=== PATIENT | female | born 1945 | race Caucasian/White ===

== ENCOUNTER 2016-11-27 12:47 | Emergency (ER) | payer MEDICARE, BC ==
[~2016-11-27] VITALS: Ht 165.1 cm; Wt 69.3 kg
[2016-11-27 13:10] VITALS: BP 140/78; PULSE 86; RESP 16; TEMP 98.5; O2SAT 95
[2016-11-27] MEDS ORDERED: LIPI10TA PO (14:41)
[2016-11-27] MEDS ORDERED: SODIUM CHLOR 0.9% 1000 ML INJ 1,000 ML IV SCH (15:15)
[2016-11-27 15:24] VITALS: BP 125/63; PULSE 80; RESP 18; O2SAT 97
[2016-11-27 15:27] LABS: AUTOMATED NEUTROPHIL # 5.4 TH/MM3 (1.8-7.7); BASOPHIL % 0.5 % (0.0-2.0); EOSINOPHIL # 0.4 TH/MM3 (0-0.4); EOSINOPHIL % 5.2 % (0.0-4.0); HEMATOCRIT 39.8 % (35.0-46.0); HEMO FLAGS DIFF FINAL; LYMPH % 18.5 % (9.0-44.0); LYMPHOCYTE # 1.4 TH/MM3 (1.0-4.8); MEAN CELL VOLUME 87.7 FL (80.0-100.0); MEAN CORPUSCULAR HEMOGLOBIN 29.4 PG (27.0-34.0); MEAN CORPUSCULAR HGB CONC 33.5 % (32.0-36.0); MONO % 7.5 % (0.0-8.0); NEUT % 68.3 % (16.0-70.0); PLATELET COUNT 254 TH/MM3 (150-450); RED BLOOD COUNT 4.53 MIL/MM3 (4.00-5.30); RED CELL DISTRIBUTION WIDTH 12.1 % (11.6-17.2); WHITE BLOOD COUNT 7.8 TH/MM3 (4.0-11.0)
[2016-11-27 15:34] LABS: CHLORIDE 108 MEQ/L (98-107); POTASSIUM 4.1 MEQ/L (3.5-5.1); SODIUM (NA) 143 MEQ/L (136-145)
[2016-11-27 15:39] LABS: ANION GAP 7 MEQ/L (5-15); BICARBONATE 27.7 MEQ/L (21.0-32.0); BLOOD UREA NITROGEN 14 MG/DL (7-18)
[2016-11-27 15:42] LABS: ALT (GPT) 17 U/L (10-53); AST (GOT) 15 U/L (15-37); GLOMERULAR FILTRATION RATE 64 ML/MIN (>89)
[2016-11-27 15:43] LABS: TOTAL BILIRUBIN ADULT 0.5 MG/DL (0.2-1.0)
[2016-11-27 15:45] LABS: ALKALINE PHOSPHATASE 85 U/L (45-117)
[2016-11-27] MEDS ORDERED: IOHEXOL 350 MG/ML 10 ML VIAL (for RAD DIAG) IV ONE (16:06)
--- NOTE | 2016-11-27 16:19 | RADHPO ---
EXAM DATE/TIME: 11/27/2016 15:50 [place] COMPARISON: No previous studies available for comparison. INDICATIONS : Right supraclavicular palpable mass. IV CONTRAST: 80 cc Omnipaque 350 (iohexol) IV RADIATION DOSE: 9.00 CTDIvol (mGy) MEDICAL HISTORY : Cardiovascular disease. SURGICAL HISTORY : Right neck lymphectomy. ENCOUNTER: Initial ACUITY: 3 weeks PAIN SCALE: 2/10 LOCATION: Left upper chest TECHNIQUE: Volumetric scanning of the chest was performed. Using automated exposure control and adjustment of t he mA and/or kV according to patient size, radiation dose was kept as low as reasonably achievable to obtain optimal diagnostic quality images. FINDINGS: LUNGS: There is no consolidation or pneumothorax. No concerning pulmonary nodule is visualized. 5 mm nodule left lower lobe in the costophrenic angle. PLEURA: There is no pleural thickening or pleural effusion. MEDIASTINUM: The heart and great vessels demonstrate no acute abnormality. There is no mediastinal or hilar lymph adenopathy. AXILLAE: Within normal limits. No lymphadenopathy. SKELETAL: Within normal limits for patient age. MISCELLANEOUS: The visualized upper abdominal organs demonstrate no acute abnormality. Marker placed in the right ne ck. This overlies the right sternocleidomastoid musculature and right internal jugular vein which is larger on the right. There is mixing of unopacified blood and contrast within the right jugular vein. CONCLUSION: 1. Marker on the right neck and overlies the right sternocleidomastoid musculature and right internal jugular vein. No soft tissue mass. May consider an ultrasound to insure no thrombus in the right int ernal jugular vein. 2. No infiltrate or mass. 3. 5 mm nodule left lower lobe in the costophrenic angle, likely benign. Followup CT chest in 6 month s recommended for stability Juan Fabian MD on November 27, 2016 at 16:11 Board Certified Radiologist. This report was verified electronically.
--- NOTE | 2016-11-27 16:56 | PD ---
HPI Chief Complaint: Lump, Cyst, Hernia Time Seen by Provider: 14:47 Travel History International Travel<30 days: No Contact w/Intl Traveler<30days: No Traveled to known affect area: No History of Present Illness HPI Is a 71-year-old woman who presents to the emergency department concerned that she feels a lump over her right clavicle. She's had a right sided lymph node lump on her neck removed a basketball scout to be nothing of consequence. She states she noticed this about several weeks ago and then was overcome with worry today. She tried to call Dr. Mcarthur's office, whom she has never met, to arrange for an evaluation. She was referred here to the impression that if we did images here they would be only review them remotely. No fevers chills night sweats weight loss or any other constitutional symptoms. She's been feeling well. No tenderness to the area. History Past Medical History Narrative Medical Hyperlipidemia Tetanus Vaccination: Unknown Influenza Vaccination: Yes Menopausal: Yes Social History Alcohol Use: Yes (Socially) Tobacco Use: No Allergies-Medications (Allergen,Severity, Reaction): Coded Allergies: Latex (Verified Allergy, Severe, Difficulty breathing , 11/27/16) Reported Meds & Prescriptions Reported Meds & Active Scripts Active Reported Lipitor (Atorvastatin Calcium) 10 Mg Tab 10 Mg PO HS Review of Systems Except as stated in HPI: all other systems reviewed are Neg Physical Exam Narrative GENERAL: Well-appearing 71-year-old woman, no acute distress. SKIN: Warm and dry. HEAD: Atraumatic. Normocephalic. EYES: Pupils equal and round. No scleral icterus. No injection or drainage. ENT: No nasal bleeding or discharge. Mucous membranes pink and moist. NECK: Trachea midline. No JVD. I don't really feel any abnormal lumps or bumps to palpation. There may be just a little bit of fullness over the proximal right clavicle. No palpable lymph nodes. Lymphatic system: No abnormal anterior cervical adenopathy, axillary adenopathy , there is some shotty bilateral inguinal adenopathy. CARDIOVASCULAR: Regular rate and rhythm. No murmur appreciated. RESPIRATORY: No accessory muscle use. Clear to auscultation. Breath sounds equal bilaterally. GASTROINTESTINAL: Abdomen soft, non-tender, nondistended. Hepatic and splenic margins not palpable. MUSCULOSKELETAL: No obvious deformities. No clubbing. No cyanosis. No edema. NEUROLOGICAL: Awake and alert. No obvious cranial nerve deficits. Motor grossly within normal limits. Normal speech. PSYCHIATRIC: Appropriate mood and affect; insight and judgment normal. Data Data Last Documented VS Vital Signs Date Time Temp Pulse Resp B/P Pulse Ox O2 Delivery O2 Flow Rate FiO2 11/27/16 15:24 80 18 125/63 97 11/27/16 13:10 98.5 Orders Complete Blood Count With Diff (11/27/16 15:06) Comprehensive Metabolic Panel (11/27/16 15:06) Ct Thorax/ Chest W Iv Contrast (11/27/16 ) Iv Access Insert/Monitor (11/27/16 15:06) Sodium Chlor 0.9% 1000 Ml Inj (Ns 1000 M (11/27/16 15:15) Iohexol 350 Inj (Omnipaque 350 Inj) (11/27/16 16:06) Radiology Film Requests (11/27/16 ) Ed Poc Ultrasound (11/27/16 ) Labs Laboratory Tests Test 11/27/16 15:15 White Blood Count 7.8 TH/MM3 Red Blood Count 4.53 MIL/MM3 Hemoglobin 13.3 GM/DL Hematocrit 39.8 % Mean Corpuscular Volume 87.7 FL Mean Corpuscular Hemoglobin 29.4 PG Mean Corpuscular Hemoglobin 33.5 % Concent Red Cell Distribution Width 12.1 % Platelet Count 254 TH/MM3 Mean Platelet Volume 8.9 FL Neutrophils (%) (Auto) 68.3 % Lymphocytes (%) (Auto) 18.5 % Monocytes (%) (Auto) 7.5 % Eosinophils (%) (Auto) 5.2 % Basophils (%) (Auto) 0.5 % Neutrophils # (Auto) 5.4 TH/MM3 Lymphocytes # (Auto) 1.4 TH/MM3 Monocytes # (Auto) 0.6 TH/MM3 Eosinophils # (Auto) 0.4 TH/MM3 Basophils # (Auto) 0.0 TH/MM3 CBC Comment DIFF FINAL Differential Comment Sodium Level 143 MEQ/L Potassium Level 4.1 MEQ/L Chloride Level 108 MEQ/L Carbon Dioxide Level 27.7 MEQ/L Anion Gap 7 MEQ/L Blood Urea Nitrogen 14 MG/DL Creatinine 0.88 MG/DL Estimat Glomerular Filtration 64 ML/MIN Rate Random Glucose 101 MG/DL Calcium Level 8.7 MG/DL Total Bilirubin 0.5 MG/DL Aspartate Amino Transf 15 U/L (AST/SGOT) Alanine Aminotransferase 17 U/L (ALT/SGPT) Alkaline Phosphatase 85 U/L Total Protein 7.6 GM/DL Albumin 3.8 GM/DL [facility] Medical Decision Making Medical Screen Exam Complete: Yes Emergency Medical Condition: Yes Interpretation(s) LABS: CBC is unremarkable. CMP is unremarkable. Chest CT: [place] on the right neck and overlies the right sternal cleidomastoid musculature and right IJ vein. No soft tissue mass. No infiltrate or mass. 5 mm nodule in the left lower lobe in the costophrenic angle, likely benign. Recommend chest CT at 6 months Differential Diagnosis Lymph node, mass, infection, other Narrative Course Medical decision making 79 year-old woman, Diagnosis Primary Impression: Mass in chest Additional Instructions: Follow-up with her primary physician with your return home. You'll need follow- up regarding a nodule in her left lung. Return to the emergency department for any new or worsening symptoms. Disposition: 01 DISCHARGE HOME Condition: Stable Johnnie Combs MD Nov 27, 2016 16:56
[2016-11-27 17:21] VITALS: BP 138/76
== END 2016-11-27 17:53 | disposition home or self-care (01) ==
LOC: PHED 12:47
DX: R22.2 Localized swelling, mass and lump, trunk (principal); E78.5 Hyperlipidemia, unspecified
CPT/HCPCS: 71260; 80053; 85025; 96360; 96361; 99283; J7030; Q9967